=== PATIENT | female | born 1990 | race African-American/Black ===

== ENCOUNTER 2020-07-17 13:27 | Inpatient (IN) | payer MEDICAID ==
[~2020-07-17] VITALS: Ht 160 cm; Wt 156.5 kg
--- NOTE | ~2020-07-17 | OP ---
PATIENT NAME: DEJA BRIGHT MEDICAL RECORD: [id number] :88 LOCATION:[id number] ADMISSION DATE:08/03/20 SURGEON: MEGA NUNES MD DATE OF OPERATION: 08/03/2020 PREOPERATIVE DIAGNOSES: 1. Term intrauterine . 2. History of previous section times 2. 3. Labor. POSTOPERATIVE DIAGNOSES: 1. Term intrauterine . 2. History of previous section times 2. 3. Labor. PROCEDURE: Repeat low transverse section and bilateral distal salpingectomy as well as lysis of adhesion. SURGEON: Mega Nunes. ANESTHESIA: Attempted spinal followed by general anesthesia. SPECIMENS: Included placenta, cord for gases and bilateral tubal segments. ESTIMATED BLOOD LOSS: 1000 mL. IV FLUID: Per anesthesia records. FINDINGS: 1. Viable infant, Apgars 9 at 1 and 9 at 5. 2. Extensive adhesive disease involving the anterior surface of the uterus and rectus fascia. 3. Normal adnexa bilaterally. PROCEDURE IN DETAIL: The patient was taken to the operating room where regional anesthesia was attempted; however, was unable to be achieved. At this point, the patient was prepped and draped, and the patient was induced for general anesthesia. A repeat Pfannenstiel skin incision was made, extended downward to the underlying subcutaneous fat to the level of the fascia. The fascia was then excised in the midline and excised bilaterally using the Diehl scissors. The superior and inferior aspect of the fascial incision was then grasped with Sylwia clamps times 2, tented upward, and sharply dissected from the underlying rectus muscle using the Bovie cautery and the Diehl scissors. Rectus muscles were bluntly in the midline and the peritoneum entered sharply at the superior aspect of the incision. Peritoneal incision was extended bilaterally and inferiorly using the Metzenbaum scissors. Bladder blade was placed into the pelvis. The bladder flap was created by excising the anterior leaf of the broad ligament across the lower uterine segment following lysis of significant adhesive disease on the anterior surface of the uterus. A low transverse incision was made and extended superiorly and inferiorly using the Pelosi method. At this point, the vertex was delivered atraumatically followed by the body. The infant was bulb suctioned upon delivery and was found to be a vigorous. The infant was handed to the awaiting nursery team. At this point, cord was obtained for gases. The cord was clamped times 2 and cut and the placenta was then removed manually and intact. The uterus was exteriorized, OPERATIVE REPORT [id number] DEJA BRIGHT cleared of all clots and debris and vigorously massaged until good uterine tone was noted. The uterine incision was repaired with 0 Vicryl in a running locked fashion times 2 with good hemostasis noted. Attention was then turned to the bilateral fallopian tubes, at which point a defect was made using the Bovie cautery in the bilateral broad ligaments. Curved Flavia clamps were then placed across the mesosalpinx and the midportion of the fallopian tubes bilaterally and the distal proximal half of the fallopian tube was then removed using the Metzenbaum scissors. The 4 pedicles were first free tied with 2-0 Vicryl suture and then suture ligated. All 4 pedicles were found to be hemostatic following distal salpingectomy. Posterior cul-de-sac was then thoroughly irrigated and the uterus was replaced in the pelvis. The anterior cul-de-sac was thoroughly irrigated. Counts were correct times 2 for needles, sponges, and instruments. The fascia was then repaired with 0 looped PDS and the skin repaired with kati. The patient tolerated the procedure well and was transported to postanesthesia recovery stable without incident. TRANSINT:[id number] Voice Confirmation ID: [id number] DOCUMENT ID: [id number] MEGA NUNES MD CC: [id number] DICTATION DATE: 08/18/20 1355 ACT TUTOR: 08/18/20 1441 DIS IN 08/05/20 [place] [id number] [place] [id number]
[2020-08-03] VITALS (9 sets, daily range): BP systolic 127–155; BP diastolic 67–99; Ht 160 cm; Wt 156.5 kg
[2020-08-03 06:27] LABS: HEMATOCRIT 34.1 % (36.0-48.0); HEMOGLOBIN 10.6 g/dL (12-16); MCH 23.6 pg (26.0-34.0); MCHC 31.1 g/dL (31.0-37.0); MCV 75.9 fL (80.0-100.0); MEAN PLATELET VOLUME 9.6 fL (7.4-10.4); RBC 4.49 10x6/uL (4.00-5.40); RDW 17.1 % (11.5-14.5); WBC 7.2 10x3/uL (4.8-10.8)
[2020-08-03 06:30] LABS: BILIRUBIN NEGATIVE (NEGATIVE); KETONE NEGATIVE (NEGATIVE); NITRITE NEGATIVE (NEGATIVE); UROBILINOGEN NORMAL mg/dL (< 2)
[2020-08-03 06:33] LABS: BACTERIA FEW HPF (NONE SEEN); SQUAMOUS EPITHELIAL 0-5 HPF (0-4); WHITE CELLS - URINE 2 HPF (0-4)
[2020-08-03 06:39] LABS: UDS - AMPHET NEGATIVE QUAL (NEGATIVE); UDS - BARB NEGATIVE QUAL (NEGATIVE); UDS - BENZO NEGATIVE QUAL (NEGATIVE); UDS - COCAINE NEGATIVE QUAL (NEGATIVE); UDS - OPIATE NEGATIVE QUAL (NEGATIVE); UDS - PCP NEGATIVE QUAL (NEGATIVE); UDS - THC NEGATIVE QUAL (NEGATIVE)
--- NOTE | 2020-08-03 10:18 | NUR ---
PT RECEIVED FROM RECOVERY. VSS, SEE POST OP FLOWSHEET. PT DROWSY, EASILY AROUSED TO VERBAL STIMULATION. PT C/O ICHING. FF,U2 SMALL AMOUNT RUBRA LOCHIA NOTED ON PERIPAD. ICE PACK PROVIDED TO LOWER TRANSVERSE INCISION. BANDAGE C/D/I. PANDYA DRAING TO BEDSIDE DRAINAGE, 45 MLS YELLOW URINE IN BEDSIDE DRAINAGE. HEART SOUNDS REGULAR R,R S1,S2 PRESENT. LUNGS CLEAR IN ALL LOBES BILATERALLY. OXYGEN ADMINSTERED AT 2 L PER NC. PIV 18G IN RT HAND INFUSING LR WITH PITOCIN AT 125 MLS/HR. CALL LIGHT WITHIN REACH, [id number]. WILL CONTINUE TO MONITOR.
--- NOTE | 2020-08-03 10:30 | NUR ---
DR SANTILLAN PAGED, CALL BACK RECEIVED. REQUEST TO GIVE PT FAITHYL FOR ICHING. ORDERS RECEIVED. SEE EMAR.
--- NOTE | 2020-08-03 10:53 | NUR ---
BENEDRYL 25 MG ADMINISTERED IV FOR ITCHING. PT DENIES NEEDS AT THIS TIME. WILL CONTINUE TO MONITOR.
--- NOTE | 2020-08-03 11:10 | NUR ---
DR SANTILLAN PAGED
--- NOTE | 2020-08-03 11:33 | NUR ---
DR TYRELL PITTMAN.
--- NOTE | 2020-08-03 11:40 | NUR ---
DR SANTILLAN PHONES UNIT, REPORT GIVEN ON ELEVATED BP'S IN 140'S/80'S AND HIGHEST OF 157/85. ORDER RECEIVED TO CONTINUE TO MONITOR AND NOTIFY IF ANY HIGHER BP'S OBTAINED.
--- NOTE | 2020-08-03 12:30 | NUR ---
FF,MIDLINE U2, SMALL AMOUNT RUBRA LOCHIA NOTED. PILLOW AND ICE WATER PROVIDED. PT DENIES NEEDS AT THIS TIME.
--- NOTE | 2020-08-03 13:30 | NUR ---
FF,MIDLINE U2, SMALL AMOUNT RUBRA LOCHIA NOTED. PERIPADS CHANGED. PT POSITIONED TO RIGHT SIDE. PT DENIES NEEDS AT THIS TIME.
--- NOTE | 2020-08-03 13:50 | NUR ---
DR SANTILLAN PAGED, IMMEDIATE CALL BACK. REPORT GIVEN OF PT VS AFTER FLUID BOLUS.
[2020-08-03 13:58] LABS: BASOPHILS 0.1 % (0-2); EOSINOPHILS 0 % (0-7); HEMATOCRIT 31.3 % (36.0-48.0); HEMOGLOBIN 9.6 g/dL (12-16); IMMATURE GRANULOCYTES 0.2 % (0-5); LYMPHOCYTE ABS# 1.34 10x3/uL (1.18-3.74); LYMPHOCYTES 8.8 % (15-50); MCH 23.5 pg (26.0-34.0); MCHC 30.7 g/dL (31.0-37.0); MCV 76.7 fL (80.0-100.0); MEAN PLATELET VOLUME 9.1 fL (7.4-10.4); NEUTROPHIL ABS# 13.24 10x3/uL (1.56-6.13); NEUTROPHILS 86.9 % (40-80); PLATELET COUNT 360 10x3/uL (130-400); RBC 4.08 10x6/uL (4.00-5.40); RDW 17.3 % (11.5-14.5)
[2020-08-03 13:59] LABS: WBC 15.2 10x3/uL (4.8-10.8)
--- NOTE | 2020-08-03 14:30 | NUR ---
PT FF,MIDLINE,U2. SMALL TO MODERATE AMOUNT RUBRA LOCHIA NOTED. PERIPADS CHANGED. PT C/O ITCHING, WILL CONTINUE TO MONITOR.
--- NOTE | 2020-08-03 14:50 | NUR ---
DR SANTILLAN PAGED, IMMEDIATE CALL BACK. REPORT GIVEN OF PT VS. ORDERS RECEIVED TO GIVE FLUID BOLUS OF NS 500 MLS AND TORADOL. WILL CONTINUE TO MONITOR.
--- NOTE | 2020-08-03 15:17 | NUR ---
NS 500 ML BOLUS INFUSING AT 999 MLS/HR. PANDYA EMPTIED 300 MLS STRAW COLORED URINE. PT DENIES NEEDS AT THIS TIME.
--- NOTE | 2020-08-03 15:40 | NUR ---
FF,MIDLINE,U2. MODERATE AMOUNT OF BLEEDING ON PERIPADS. HALF DOLLAR SIZED CLOT ON PAD. PERICARE DONE, PERIPADS CHANGED. PT DENIES NEEDS AT THIS TIME.
--- NOTE | 2020-08-03 18:51 | NUR ---
FF,MIDLINE, U2 MODERATE LOCHIA WITH HALF DOLLAR SIZED CLOT IN PERIPADS. PERIPADS CHANGED,KIMBERLEY CHANGED. TOTAL BLOOD LOSS SINCE PACU WEIGHED AND NOTED TO BE 493 MLS. CALLED, REPORT GIVEN OF BLOOD LOSS, ORDERS RECEIVED TO GIVE TXA AND REPEAT IN ONE HOUR.
--- NOTE | 2020-08-03 19:00 | NUR ---
REPORT TO PM SHIFT
--- NOTE | 2020-08-03 19:15 | NUR ---
RN TO BEDSIDE FOR SHIFT ASSESSMENT. REC'D PT AA&O X 4 SITTING IN HIGH ROLON'S. PAIN ASSESSED. PT RATES PAIN 4/10. STATES "IT'S OK." ORTHOTICS PROSTHETICS ASSISTANT BUTTON AT PT'S SIDE. RESP EVEN AND UNLABORED. LUNGS CL/EQUAL. HR REGULAR. ABD SOFT, FUNDUS FIRM, U/1, MIDLINE. LOW TRANSVERSE INCISION W/ABD DRESSING. FRESH BLOOD NOTED ON BANDAGE THAT APPEARS TO BE FROM VAG BLEEDING, NOT FROM INCISION. PANDYA CATH IN PLACE DRAINING VIA GRAVITY AT BEDSIDE. APPROX 400ML NOTED AND DUMPED. SCD WRAPS ON BILATERALLY. CONNECTED TO PUMP. PUMP IS ON AND FUNCTIONING. EDEMA NOTED TO FEET/ANKLES OF 1+. NO CLONUS. PIV TO RT HAND W/18GUAGE. CURRENT BAG OF PITOCIN INFUSING AT 125ML/HR. TXA TEACHING PROVIDED. PT HAS QUESTIONS. ANSWERED PER THIS RN. FRESH ICE CHIPS AND JULIETH CRACKERS SERVED PER PT'S REQUEST. CURRENT PERIPAD W/ SMALL LOCHIA REMOVED. NO BLEEDING BENEATH PT NOTED. CLEAN PERIPAD PLACED. BED IN LOW POSITION. SIDE RAILS UP X 2. CALL LIGHT AND ORTHOTICS PROSTHETICS ASSISTANT BUTTON AT PT'S SIDE.
--- NOTE | 2020-08-03 19:46 | NUR ---
TXA UP TO INFUSE IVPB VIA PUMP OVER 30MINS. CURRENT PERIPAD W/SMALL LOCHIA NOTED CHANGED. PT DENIES NEEDS AT THIS TIME.
--- NOTE | 2020-08-03 20:15 | NUR ---
RN TO BEDSIDE TO PROVIDE I.S. AND TEACHING. PT PERFORMS I.S. W/GOOD EFFORT. ABLE TO PULL 1900. COUGHS W/GOOD EFFORT AND REPORTS FEELING MUCUS CLEARING. IMMEDIATELY FOLLOWING, PT REPORTS FEELING A LARGE BLOOD CLOT COME OUT. UPON INSPECTION, A SMALL APPLE SIZED CLOT NOTED AND WEIGHED. APPROX 50ML. NO ACTIVE FLOW NOTED. FUNDAL MASSAGE DONE. FUNDUS FIRM,U/2, NO FURTHER CLOTS EXPRESSED. PERICARE DONE AND FRESH PAD AND CHUX PLACED. ADDITIONAL PILLOW PROVIDED. 1ST DOSE OF TXA NOTED TO BE NEAR COMPLETE. WILL PLAN FOR 2ND DOSE ADMIN ORDERED. PT DENIES FURTHER NEEDS AT THIS TIME.
--- NOTE | 2020-08-03 20:59 | NUR ---
2nd dose of TXA up to infuse ivpb via pump per order. small rubra lochia noted to peripad. pad not changed at this time. pain assessed. pt drowzy, reports recently pushed plodder operator button. rates pain 07/02. approx 190ml urine noted in urometer and dumped.
--- NOTE | 2020-08-03 21:15 | NUR ---
RN TO BEDSIDE. PT PERFORMS I.S. X 3 W/GOOD EFFORT. ABLE TO PULL 2000. MINIMAL COUGH NOTED. PT DENIES HAVING A GUSH OR FEELING A BLOOD CLOT THIS TIME. FUNDUS FIRM,U/2. MIDLINE. NO CLOTS EXPRESSED W/MASSAGE. PERICARE DONE. CHUX AND PAD CHANGED.FRESH WATER SERVED. NO FURTHER NEEDS AT THIS TIME.
--- NOTE | 2020-08-03 22:00 | NUR ---
RN TO BEDSIDE. PT SITTING UP IN BED AWAKE W/BABY UP IN ARMS. PT REPORTS SHE WAS ABLE TO DOZE OFF, BUT HER ABD PAIN WOKE HER UP. SO SHE PUSHED PER SAFETY ADMINISTRATOR BUTTON. NO URINE OUTPUT NOTD IN UROMETER. PT REPOSITINED IN BED AND APPROX 35ML URINE DRAINED INTO UROMETER AND DUMPED. TEACHING PROVIDED TO CONTINUE DRINK PO FLUIDS. FUNDAL MASSAGE PERFORMED. FUNDUS FIRM,U/2, NO BLOOD CLOTS EXPRESSED W/MASSAGE. CURRENT PAD W/MODERATE LOCHIA NOTED. PERICARE DONE AND FRESH PAD PLACED. PT PERFORMS I.S. W/GOOD EFFORT X 3. SCD WRAPS REMAIN IN PLACE BILATERALLY. REMAIN CONNECTED TO PUMP. PUMP REMAINS ON. PT DENIES NEEDS. SAFETY ADMINISTRATOR BUTTON AND CALL LIGHT AT PT'S SIDE.
--- NOTE | 2020-08-03 23:00 | NUR ---
RN TO BEDSIDE FOR VITAL SIGNS, I&O AND BLEEDING ASSESSMENT. SEE FLOWSHEET. QBL FOR [id number] = 240ML. PERICARE DONE AND CLEAN PAD PLACED.
--- NOTE | 2020-08-03 23:20 | NUR ---
DR DIAS CALLED TO GIVE REPORT OF PT'S CURRENT VITALS, AND URINE OUTPUT. ORDERS REC'D TO GIVE 1 LITER BOLUS OF NS NOW AND THEN CONTINUE WITH PITOCIN INFUSION PER PROTOCOL.
--- NOTE | 2020-08-03 23:35 | NUR ---
TOOK REPORT FROM PRABHU BAINS. I AM TAKING OVER CARE OF THIS PT. HER NS BOLUS IS IN PROGRESS FROM STARTINB 2330. STARTING URINE OUTPUT IN PANDYA BAG IS 10 ML. WILL BE FOLLOWING CLOSELY.
--- NOTE | 2020-08-04 00:32 | NUR ---
PT IS ITCHING SEVERELY. SHE LOOKS MISERABLE.SHE STATES THIS ITCHING STARTED IN HER THIRD TRIMESTER. SHE RECEIVED 50 MG OF BENADRYL IV PER ORDER.
--- NOTE | 2020-08-04 00:50 | NUR ---
GLASS BREAKER PUMP WAS REFILLED WITH ANOTHER SYRINGE OF DILAUDID.
--- NOTE | 2020-08-04 01:00 | NUR ---
FLUID BOLUS IS COMPLETED. NS/PITOCIN 20 UNITS WAS HUNG RUNNING AT 125 ML/ HR.
--- NOTE | 2020-08-04 02:00 | NUR ---
IN PT ROOM TO CHECK ON URINE OUTPUT. SHE HAS 125ML OF URINE IN THE PANDYA BAG. I ENCOURAGED HER TO CONTINUE DRINKING ALL SHE COULD. HER MUG WAS REFILLED WITH FRESH ICE WATER. HER URINE IS VERY CONCENTRATED. WHEN I FIRST WALKED INTO THE ROOM PT WAS DOZING. SHE STATES THAT SHE IS NOT ITCHING ANY MORE. PT HAS NO NEW C/O OR NEEDS.
[2020-08-04 03:30] VITALS: BP 136/73
--- NOTE | 2020-08-04 04:00 | NUR ---
CHECKED PT PAD. THERE WAS ON STRINGY CLOT THAT WAS VERY SMALL. BLEEDING IS STILL MOD. FUNDUS FIRM. CLEANED PT JUSTIN AREA WITH WARM WATER AND SHE FEELS BETTER. NEW PAD PLACED. PT IS HAVING MORE URINE OUTPUT.
--- NOTE | 2020-08-04 04:46 | NUR ---
BABY IN CRIB AND MOM IS SLEEPING.
--- NOTE | 2020-08-04 05:00 | NUR ---
PT NOW AWAKE. PAD CHANGED. A LITTLE STRINGY CLOTT ON PAD. BLEEDING IS MODERATE. NO NEW C/O AT THIS TIME.
--- NOTE | 2020-08-04 06:00 | NUR ---
PT IS STARTING TO ITCH BADLY. SHE GETS AGITATED WHEN THE ITCHING STARTS TO GET BAD. WILL GIVE MORE BENEDRYL WHEN ITS TIME.
[2020-08-04 06:11] LABS: RAPID PLASMA REAGIN Non Reactive (Non Reactive)
--- NOTE | 2020-08-04 06:45 | NUR ---
PT PAD CHANGED. THIS PAD WAS FAIRLY WELL SATURATED AND MORE BLEEDING THAN THE LAST TWO PAD.
[2020-08-04 07:50] VITALS: BP 139/85
--- NOTE | 2020-08-04 07:50 | NUR ---
RECEIVED PT SITTING UP IN BED. C/O BURNING AND ITCHING OF "7" ON 0-10 PAIN SCALE. VSS. HRRR WITHOUT AUDIBLE MURMUR. BBS CLEAR. BS X 4. ABDOMEN SOFT/NON-DISTENDED. FUNDUS FIRM AT U/U. RUBRA LOCHIA SMALL AMT. NO CLOTS NOTED ON PERIPAD OR A RESULT OF FUNDAL MASSAGE. ABDOMINAL DRESSING DRY WITHOUT DRAINAGE. NEG HOMANS' SIGN. PPP. 1+/1+ PITTING EDEMA NOTED TO FEET. PERIPAD AND CHUX CHANGED. PIV SITE CLEAR TO RIGHT HAND. NS WITH PITOCIN INFUSING AT 125 ML/HR. DILAUDID DISPENSING OPTICIAN APPRENTICE INFUSING ORDERED. PT C/O ABDOMINAL PAIN AND PAIN TO VAGINAL AREA OF "7" ON 0-10 PAIN SCALE. PT ALSO C/O ITCHING. SCDS ON BLE. PUMP ON. PANDYA TO GRAVITY DRAINING CONCENTRATED YELLOW URINE. 100 ML EMPTIED FROM BAG. SR UP X 2. CALL LIGHT IN REACH.
[2020-08-04 09:06] LABS: BASOPHILS 0.1 % (0-2); EOSINOPHILS 0.2 % (0-7); HEMATOCRIT 25.2 % (36.0-48.0); IMMATURE GRANULOCYTES 0.2 % (0-5); LYMPHOCYTE ABS# 2.06 10x3/uL (1.18-3.74); LYMPHOCYTES 23.2 % (15-50); MCH 23.5 pg (26.0-34.0); MCHC 30.2 g/dL (31.0-37.0); MCV 77.8 fL (80.0-100.0); MEAN PLATELET VOLUME 9.4 fL (7.4-10.4); MONOCYTES 5.9 % (2-11); NEUTROPHIL ABS# 6.24 10x3/uL (1.56-6.13); NEUTROPHILS 70.4 % (40-80); PLATELET COUNT 331 10x3/uL (130-400); RDW 17.2 % (11.5-14.5)
[2020-08-04 09:08] LABS: HEMOGLOBIN 7.6 g/dL (12-16); RBC 3.24 10x6/uL (4.00-5.40); WBC 8.9 10x3/uL (4.8-10.8)
--- NOTE | 2020-08-04 09:10 | NUR ---
DR SANTILLAN NOTIFIED OF LAB RESULTS. ORDERS RECEIVED.
--- NOTE | 2020-08-04 09:32 | NUR ---
PT C/O ABDOMINAL CRAMPING OF "7" ON 0-10 PAIN SCALE. NORCO 10/325 AND MOTRIN 600 MG GIVEN PO ORDERED. PANDYA DC'D WITH 150 ML OF DARK, YELLOW URINE NOTED IN BAG.
--- NOTE | 2020-08-04 10:00 | NUR ---
PT AMBULATORY PER SELF, STEADY GAIT, TO BR. UNABLE TO VOID AT THIS TIME. SPONGE BATH PER PT REQUEST. BED LINENS CHANGED.
--- NOTE | 2020-08-04 10:42 | NUR ---
PT BACK TO BED. SHILPA ACTIVITY WELL. STATES C/O FEELING TIRED. NS ON Y-TUBING INFUSING AT 125 ML/HR. SITE CLEAR TO RIGHT HAND.
[2020-08-04 10:57] VITALS: BP 123/75
--- NOTE | 2020-08-04 10:59 | NUR ---
FIRST UNIT PACKED RBC'S UP/VERIFIED PER THIS NURSE AND Katherine RESENDIZ RN. VSS. PT INSTRUCTED ON SIDE EFFECTS. VERBALIZES UNDERSTANDING. PIV SITE CLEAR.
--- NOTE | 2020-08-04 11:15 | NUR ---
PT TOLERATING TRANSFUSION WELL. RATE INCREASED FROM 75 ML/HR TO 125 ML/HR. SITE CLEAR TO RIGHT HAND.
--- NOTE | 2020-08-04 11:30 | NUR ---
VSS. PT TOLERATING TRANSFUSION WELL. RATE INCREASED TO 250 ML/HR. SITE CLEAR.
--- NOTE | 2020-08-04 13:00 | NUR ---
PT SITTING UP IN BED. PACKED RBC'S COMPLETED. PIV CONVERTED TO SL. FLUSHES EASILY WITH 10 ML NS. SITE CLEAR. PT SHILPA WELL. VSS.
--- NOTE | 2020-08-04 13:04 | NUR ---
PT UP TO BR. VOIDS 400 ML OF BLOOD-TINGED URINE. PERICARE DONE PER PT. PANTIES AND PADS CHANGED. SEVERAL SMALL DIME-SIZED CLOTS NOTED ON TISSUE. PT AMB BACK TO BED. PT C/O ABDOMINAL PRESSURE. REQUESTS AND RECEIVES NORCO 10/325 AND MYLICON 80 MG CHEW TAB. PT ALSO C/O ITCHING. BENADRYL 50 MG GIVEN PO ORDERED.
--- NOTE | 2020-08-04 14:30 | NUR ---
PT AMBULATORY IN HALLS. SHILPA ACTIVITY WELL.
--- NOTE | 2020-08-04 15:20 | NUR ---
PT TRANSFERED VIA AMBULATORY TO ROOM 1257. PT ORIENTED TO ROOM, BED, AND CALL LIGHT.
--- NOTE | 2020-08-04 16:10 | NUR ---
R HAND PIV WRAPPED. TOWELS PROVIDED, UP TO SHOWER. REPORTS THAT SIGNIFICANT OTHER WILL ASSIST. INSTRUCTED ON BR CALL LIGHT USE, VERBALIZES UNDERSTANDING. 400 MLS CLEAR LIGHT YELLOW URINE EMPTIED FROM PANDYA. DENIES NEEDS.
--- NOTE | 2020-08-04 16:24 | NUR ---
PT TRANSFERED VIA WHEELCHAIR PER TRANSPORT STAFF TO ROOM 2236.
--- NOTE | 2020-08-04 16:25 | NUR ---
C/O OF ABD AND INCISIONAL DISCOMFORT, 10/30. MEDICATED PER EMAR. LIST OF MEDS PLACED ON PT BOARD PER REQUEST WITH NEXT AVAILABLE TIME FOR PRN MEDS. SITTING IN HIGH FOWLERS POSITION CARING FOR . ICE WATER PROVIDED. BED IN LOW POSITION WITH SRUP X2. CALL LIGHT AND PHONE WITIN REACH. SIGNIFICANT OTHER AT BEDSIDE, SUPPORTIVE AND ATTENTIVE TO PT AND INFANT NEEDS.
--- NOTE | 2020-08-04 17:19 | NUR ---
PT SITTING UP IN BED. CONSUMING DINNER. STATES PASSING GAS. C/O PAIN TO LOWER ABDOMEN OF "10" ON 0-10 PAIN SCALE. NORCO 10/325 AND MYLICON 80 MG CHEW TAB GIVEN PO ORDERED. PT INSTRUCTED ON MEDS. VERBALIZES UNDERSTANDING. VSS. PT DENIES PASSING CLOTS OR SOAKING PAD IN AN HOUR. STATES "MY BLEEDING HAS GOTTEN REALLY LIGHT".
[2020-08-04 17:20] VITALS: BP 128/68
[2020-08-04 18:09] VITALS: BP 127/71
--- NOTE | 2020-08-04 18:10 | NUR ---
PT SITTING UP IN BED. C/O GAS PAIN/PRESSURE. VSS. PT STATES PASSING VERY LITTLE GAS BELOW. STATES HAS BEEN DRINKING MORE SODA/SPRITE. PT ENCOURAGED TO AMBULATE IN HALLS.
--- NOTE | 2020-08-04 18:50 | NUR ---
REPORT GIVEN TO ON-COMING SHIFT.
--- NOTE | 2020-08-04 19:48 | NUR ---
PT. REQUEST BENADRYL AT THIS TIME. PT. REPORTS "ASHLEY BEEN ITCHING NON STOP". INSTRUCTED PT. THAT I WILL BRING ONE RIGHT BACK.
--- NOTE | 2020-08-04 19:55 | NUR ---
BENADRYL 50 MG CAPSULE ADMINISTERED ORALLY PER MD ORDERS AND PT. REPORT OF "ITCHING". DISCUSSED WITH PT. THAT ITCHING CAN BE A SIDE EFFECT OF PAIN MEDICATION OR IT COULD BE THAT THE LINENS ARE WASHED IN SOMETHING SHE IS SENSATIVE TO. INSTRUCTED MOM THAT THERE IS NO VISIBLE RASH OR ANYTHING SO IT MOST LIKELY IS THE MEDICATION. PT. VERBALIZES UNDERSTANDING.
--- NOTE | 2020-08-04 20:22 | NUR ---
PADS, PANTIES AND CHUX PROVIDED AT PT.'S REQUEST. PT. DENIES FURTHER NEEDS AT THIS TIME.
--- NOTE | 2020-08-04 21:25 | NUR ---
FEMALE PRESENT IN ROOM. INFANT AT BEDSIDE, SWADDLED AND SUPINE IN CRIB. SHIFT ASSESSMENT COMPLETED. UTERUS WAS FOUND TO BE U1 AND MIDLINE. SCANT BLEEDING NOTED ON PAD DURING ASSESSEMENT. TAHIRA INTACT. PT EDUCATED ON THE IMPORTANCE OF CALLING FOR HELP IF ASSISTANCE IS NEEDED. PT VERBALIZES UNDERSTANDING AT THIS TIME. NO OTHER NEEDS OR CONCERNS VOICED. S/O PRESENT IN ROOM AT THIS TIME AND ALSO DENIES NEEDS OR CONCERNS.
--- NOTE | 2020-08-04 23:03 | NUR ---
PT. BURNING SUPERVISOR LIGHT. PT. SITTING UP FEEDING INFANT A BOTTLE AT THIS TIME. PT. INQUIRES TO WHY INFANT APPEARS TO BE "SO JITTERY". DISCUSSED WITH PT. THAT SOMETIMES THIS WILL HAPPEN IF THEY WERE WITHDRAWING FROM NICOTINE OR EVEN CAFFIENE BUT SINCE SHE HAD DONE NEITHER DURING HER THAT IT IS MOST LIKELY JUST HIS STARTLE REFLEX AND THAT THIS IS A GOOD THING IT SHOWS THAT EVERYTHING IS FIRING CORRECTLY IN HIS BRAIN. PT. VERBALIZES UNDERSTANDING AND DENIES FURTHER QUESTIONS OR CONCERNS AT THIS TIME. WILL CONT. TO MONITOR.
--- NOTE | 2020-08-04 23:17 | NUR ---
PT. COMPANY LABORER LIGHT AND REQUEST NURSE TO BEDSIDE. UPON ENTERING ROOM PT. IS SITTING UP ON THE SIDE OF THE BED AND REPORTS "SHOULD I DO SOME MORE WALKING BECAUSE THIS SHARP PAIN IN MY BELLY AND PRESSURE IN MY BOTTOM IS KILLING ME". INSTRUCTED PT. THAT GAS PAIN CAN BE VERY PAINFUL. INQUIRED IF PT. IS PASSING GAS AT THIS TIME AND PT. DENIES. INSTRUCTED PT. THAT EATING THE SALAD THAT SHE WAS EATING EARLIER HAS PROBABLY JUST CAUSED SOME MORE DISCOMFORT BECAUSE LETTUCE IS A GAS CAUSING FOOD. INSTRUCTED PT. TO ATTEMPT TO GO SIT ON TOILET FOR A FEW MINUTES AND TRY TO RELAX MUCH POSSIBLE AND THIS MAY HELP HER PASS SOME OF THAT GAS AND MAKE HER MORE COMFORTABLE. INSTRUCTED PT. TO CALL ME IF SHE ISN'T ABLE TO GET ANY RELIEF AND WE CAN WALK IN THE HALLWAYS A FEW TIMES. PT. VERBALIZES UNDERSTANDING AND DENIES FURTHER NEEDS.
--- NOTE | 2020-08-04 23:40 | NUR ---
PT. REPORTS "IS THERE ANYWAY THIS IV CAN COME OUT NOW, ITS STARTING TO HURT AND I KEEP BUMPING IT". 18 G. SALINE LOCK IN RIGHT HAND DISCONTINUED WITH CATH TIP INTACT. PRESSURE HELD TO SITE FOR 1 MINUTE THEN BANDAID APPLIED. PT. DENIES FURTHER NEEDS AT THIS TIME.
--- NOTE | 2020-08-05 01:20 | NUR ---
PT. REQUEST PAIN MEDICATION AT THIS TIME. PT. COMPLAINS OF ABDOMINAL PAIN AND DENIES PASSING GAS AT THIS TIME.
--- NOTE | 2020-08-05 01:25 | NUR ---
PT. MEDICATED WITH NORCO 10/325 MG 1 TAB ORALLY PER MD ORDERS AND HER COMPLAINT OF PAIN. INSTRUCTED PT. REGARDING TAKING MYLICON CHEWABLE ALSO AND ADMINISTER ONE ORDERED. PT. INSTRUCTED TO GET UP TO BATHROOM AND JUST SIT ON TOILET AND TRY TO RELAX MUCH POSSIBLE AND SEE IF THAT DOESN'T HELP HER PASS SOME GAS. PT. VERBALIZES UNDERSTANDING AND DENIES FURTHER QUESTIONS OR CONCERNS AT THIS TIME.
[2020-08-05 01:30] VITALS: BP 136/75
--- NOTE | 2020-08-05 02:24 | NUR ---
PT. REPORTS HAVING PASSED SOME GAS AFTER SITTING ON TOILET AND PAIN IS BETTER AT THIS TIME. PT. RATES AT "3-4" ON 0-10 SCALE. WILL CONT. TO MONITOR.
--- NOTE | 2020-08-05 03:40 | NUR ---
PT. ACCESS REGISTRAR LIGHT AND REQUEST NURSE TO ROOM. UPON ENTERING THE ROOM PT. IS IN SEMI FOWLERS POSITION IN BED WITH SEVERAL BLANKETS ON TOP OF HER. PT. REPORTS "I REALLY DON'T FEEL GOOD, YOU KNOW I TOLD YOU I WAS COUGHING UP SOME PHLEGM AND MY THROAT WAS KIND OF SORE, WELL ITS GETTING WORSE". INSTRUCTED PT. REGARDING TRYING TO COUGH UP ANYTHING SHE IS ABLE TO AND SPITTING IT OUT. INQUIRED IF PT. COULD TELL WHAT COLOR IT IS. PT. REPORTS "ITS LIKE A LITTLE BIT OF GREEN". VITALS TAKEN AND STABLE. SEE GRAPH. BREATH SOUNDS CLEAR. RESP. ARE EVEN AND UNLABORED. PT. INSTRUCTED REGARDING CONTINUING TO USE THE INCENTIVE SPIROMETER HOURLY AND TO COUGH AND DEEP BREATH AT LEAST EVERY 2 HOURS. PT. VERBALIZES UNDERSTANDING. INSTRUCTED PT. THAT WARM FLUIDS WILL PROBABLY HELP TO SOOTHE HER THROAT AND LOOSEN UP ANY PHLEGM IN HER CHEST. PT. REQUEST TEA AT THIS TIME.
--- NOTE | 2020-08-05 03:52 | NUR ---
LARGE CUP OF TEA WITH NO ICE PROVIDED. INSTRUCTED PT. TO CONTINUE TO SIP ON THIS AND ALSO PERFORM INCENTIVE SPIROMETER AND C/DB EXERCISES INSTRUCTED. PT. VERBALIZES UNDERSTANDING AND DENIES FURTHER QUESTIONS OR CONCERNS AT THIS TIME.
--- NOTE | 2020-08-05 04:18 | NUR ---
REPORT CALLED TO DR. WINTERS OF PT.'S COMPLAINT OF CHEST PAIN AND COUGHING UP PHLEGM. ORDERS REC.
--- NOTE | 2020-08-05 04:24 | NUR ---
RADIOLOGY NOTIFIED OF NEED FOR CT WITH CONTRAST TO RULE OUT PE.
--- NOTE | 2020-08-05 04:40 | NUR ---
22 G. IV CATH INITIATED IN RIGHT AC ON 3RD ATTEMPT. SALINE LOCKED AT THIS TIME.
--- NOTE | 2020-08-05 04:49 | NUR ---
STEFANY DIRECTOR OF ROOMS AT BEDSIDE AND LISTENS TO PT.'S BREATH SOUNDS. ALL BREATH SOUNDS CLEAR.
[2020-08-05 04:50] VITALS: BP 143/78
[2020-08-05 04:58] VITALS: BP 144/83
--- NOTE | 2020-08-05 05:35 | NUR ---
LABORER CONSTRUCTION OR [facility] [employer] CALLS FLOOR TO ADVISE THAT THEY WILL NOT HAVE THE MEDICATION USED FOR THE VQ SCAN UNTIL AFTER 07 AM SO THE TEST COULD NOT BE PERFORMED UNTIL 0730 AM. WAS ADVISED TO OFFER TO STICK PT. AGAIN FOR IV ACCESS SO THAT WE CAN DO THE CT SCAN WITH CONTRAST.
--- NOTE | 2020-08-05 05:39 | NUR ---
EXPLAINED TO PT. THAT THE MEDICATION FOR THE VQ SCAN CANNOT BE ADMINISTERED UNTIL AROUND 7:30 AM. INSTRUCTED THE PT. THAT WE CAN ATTEMPT ANOTHER IV AND HAVE THE CT INSTEAD NOW OR WE CAN WAIT AND USE THE 22 G. FOR THE VQ SCAN. EXPLAINED TO PT. WHAT THESE TESTS ARE LOOKING FOR AND INQUIRED AGAIN WITH PT. IF SHE IS SURE THAT SHE WOULD LIKE TO WAIT BECAUSE IF SHE WAS TO HAVE A PULMONARY EMBOLISM THAT THE SOONER WE FIND OUT ABOUT IT THE BETTER THE OUTCOME WOULD BE. EXPLAINED TO PT. THAT IF WE WAITED THEN IT COULD POSSIBLY CAUSE PERMANENT DAMAGE AND POSSIBLY . PT. CONTINUES TO STATES "I AM NOT BEING STUCK AGAIN SO I WILL BE FINE, ILL WAIT FOR THE OTHER TEST". NOTIFIED RADIOLOGY OF PT.'S CHOICE.
--- NOTE | 2020-08-05 05:55 | NUR ---
REPORT CALLED TO DR. WINTERS OF [facility] SCAN NOT BEING RUN UNTIL AROUND 0730AM. REPORT GIVEN THAT I EXPLAINED TO THE PT. WHAT THIS TEST IS LOOKING FOR AND THE POSSIBLE CONSEQUENCES OF WAITING UNTIL 0730 AM AND THAT PT. STILL REFUSES TO BE STUCK ANYMORE TIMES FOR THE 20 G. IV THAT IS NEEDED IN ORDER TO OBTAIN THE CT INSTEAD. ORDERS REC. FROM DR. WINTERS TO CALL HER IMMEDIATELY IF THE PT.'S OXYGEN LEVEL WERE TO DROP.
--- NOTE | 2020-08-05 06:00 | NUR ---
PT. PLACED BACK ON VITALS MACHINE. OXYGEN SAT AT 98% ON ROOM AIR. ALL OTHER VITALS WNL.
--- NOTE | 2020-08-05 06:22 | NUR ---
PT. SITTING UP IN BED WITH INFANT LAYING ON A PILLOW. PT. REPORTS "IM FEELING GOOD NOW" WHEN ASKED HOW SHE IS FEELING AT THIS TIME. OXYGEN SAT REMAINS AT 98% ON ROOM AIR. ALL OTHER VITALS WNL. PT. REPORTS "OH, IM DOING GOOD NOW" WHEN ASKED REGARDING PAIN. PT. DENIES ANY FURTHER CHEST PAIN AND CONTINUES TO INQUIRE REGARDING BEING DISCHARGED HOME TODAY. ADVISED PT. THAT THIS WILL BE UP TO DR. WINTERS WHEN SHE MAKES ROUNDS AND THAT I WOULD IMAGINE THAT SHE WILL GET TO BE DISCHARGED LONG EVERYTHING LOOKS GOOD WHEN SHE HAS THIS VQ SCAN AND IF SHE ISN'T FEELING ANYMORE CHEST PAINS. PT. REPORTS "I REALLY THINK ITS JUST A CHEST COLD OR SOMETHING BECAUSE I AM COUGHING UP PHLEGM PRETTY MUCH EVERYTIME I COUGH NOW". BREATH SOUNDS CONTINUE TO BE CLEAR TO AUSCULTATION. WILL CONT. TO MONITOR. PT. DENIES FURTHER NEEDS OR CONCERNS AT THIS TIME. SIGNIFICANT OTHER REMAINS AT BEDSIDE.
--- NOTE | 2020-08-05 07:15 | NUR ---
NUCLEAR MEDICINE STAFF AT [facility]. STATES PT REFUSING TO HAVE VQ SCAN DONE. THIS NURSE TO ROOM. PT STATES "I AM NOT HAVING THAT DONE". STATES "I PROMISE I'M FINE". PT INFORMED OF RISKS OF NOT HAVING TEST DONE AND THAT DR WINTERS WANTS TEST DONE. PT STATES "I WILL TELL HER I'M NOT HAVING IT DONE". DR WINTERS NOTIFIED. REQUESTS TO BE TRANSFERED TO SPEAK WITH PT. PHONE CALL TRANSFERED TO PT ROOM.
--- NOTE | 2020-08-05 07:22 | NUR ---
DR WINTERS CALLS UNIT. STATES PT AGREES TO HAVE TEST DONE. NUCLEAR MEDICINE STAFF ON UNIT AND NOTIFIED.
--- NOTE | 2020-08-05 07:47 | NUR ---
PT TO NUCLEAR MEDICINE VIA WHEELCHAIR PER STAFF.
[2020-08-05 08:15] VITALS: BP 133/81
--- NOTE | 2020-08-05 08:15 | NUR ---
PT BACK TO ROOM VIA WHEELCHAIR PER STAFF. PT TO BED. VSS. HRRR WITHOUT AUDIBLE MURMUR. BBS CLEAR. BS X 4. ABDOMEN SOFT. FUNDUS FIRM AT U/U. RUBRA LOCHIA SMALL AMT. ABDOMINAL INCISION WITH TAHIRA. NO DRAINAGE, SWELLING OR REDNESS NOTED IN INCISION. NEG HOMANS' SIGN. PPP. MOD EDEMA NOTED TO BLE-1+/1+ PITTING. NO CLONUS. PT DENIES HEADACHE, VIS PROBLEMS, EPIG OR RUQ PAIN. SL TO RIGHT AC-22 GAUGE. PT DENIES PAIN. STATES PAIN "0" ON 0-10 PAIN SCALE. DENIES SHORTNESS OF BREATH, DIZZINESS OR WEAKNESS. SR UP X 2. CALL LIGHT IN REACH.
--- NOTE | 2020-08-05 08:20 | NUR ---
PERIPAD TO INCISION. PT INSTRUCTED ON INCISIONAL CARE. STATES HAS OWN BINDER AND WEARS WHEN AMBULATORY IN HALLS. PT DENIES HEAVY BLEEDING-SOAKING PAD IN ONE HOUR OR PASSING CLOTS THE SIZE OF AN EGG OR BIGGER. PT INSTRUCTED TO REPORT ANY HEAVY BLEEDING OR CLOTS TO NURSE. VERBALIZES UNDERSTANDING. PT STATES "I THINK I WAS JUST TIRED". STATES "I FELT BETTER AFTER I SLEPT SOME".
--- NOTE | 2020-08-05 10:08 | NUR ---
PT LYING SUPINE IN BED. WAKES UPON ENTERING ROOM. C/O ABDOMINAL PAIN OF "1" ON 0-10 PAIN SCALE. REQUESTS AND RECEIVES NORCO 10/325, BENADRYL 50 MG, MYLICON 80 MG AND COLACE 100 MG PO. PT INSTRUCTED ON ALL MEDS. VERBALIZES UNDERSTANDING.
--- NOTE | 2020-08-05 11:10 | NUR ---
DR WINTERS VISITS WITH PT. PT AGREES TO LAB DRAW.
--- NOTE | 2020-08-05 11:16 | NUR ---
LAB STAFF TO ROOM TO COLLECT ORDERED CBC.
[2020-08-05 11:28] LABS: BASOPHILS 0.1 % (0-2); EOSINOPHILS 0.3 % (0-7); HEMATOCRIT 27.5 % (36.0-48.0); HEMOGLOBIN 8.6 g/dL (12-16); IMMATURE GRANULOCYTES 0.4 % (0-5); LYMPHOCYTE ABS# 2.03 10x3/uL (1.18-3.74); LYMPHOCYTES 19.4 % (15-50); MCH 24.4 pg (26.0-34.0); MCHC 31.3 g/dL (31.0-37.0); MCV 78.1 fL (80.0-100.0); MONOCYTES 5.6 % (2-11); NEUTROPHIL ABS# 7.77 10x3/uL (1.56-6.13); NEUTROPHILS 74.2 % (40-80); PLATELET COUNT 358 10x3/uL (130-400); RBC 3.52 10x6/uL (4.00-5.40); RDW 17.7 % (11.5-14.5); WBC 10.5 10x3/uL (4.8-10.8)
--- NOTE | 2020-08-05 11:29 | NUR ---
PT CALLS ON LIGHT. THIS NURSE TO ROOM. PT REQUESTS AND RECEIVES BOTTLE FOR . PT STATES "HE ALREADY TOOK THAT BAG DOWN TO THE CAR". PT REQUESTING SL BE DC'D. ENCOURAGED PT TO WAIT ON LAB RESULTS BEFORE SL DC'D.
[2020-08-05] MEDS ORDERED: MOTRIN600 MG PO (11:37)
[2020-08-05] MEDS ORDERED: HYDROCODON-ACE1 EA10 PO (11:37)
--- NOTE | 2020-08-05 11:49 | NUR ---
DR WINTERS AT [facility]. NOTIFIED OF CBC RESULTS. ORDER RECEIVED TO HI HOME; F/U NEXT WEEK FOR STAPLE REMOVAL.
--- NOTE | 2020-08-05 12:00 | NUR ---
DISCHARGE INSTRUCTIONS GIVEN TO PT. PT VERBALIZES UNDERSTANDING OF ALL INSTRUCTIONS. COPIES GIVEN TO PT. PT GIVEN RX FOR NORCO 10/325 AND MOTRIN 600 MG. SL DC'D WITH [facility] INTACT. PRESSURE BANDAGE TO SITE. PT SHILPA WELL. PREPARES FOR DISCHARGE.
--- NOTE | 2020-08-05 12:23 | NUR ---
PT READY FOR DISCHARGE. DISCHARGED IN STABLE CONDITION WITH VIA WHEELCHAIR PER Chacho HERNANDEZ RN TO PRIVATE VEHICLE.
== END 2020-08-05 12:23 | disposition home or self-care (01) | DRG 785 ==
LOC: D.WS 08-03 05:38 → D.LD 08-03 05:38 → D.SDCHOLD 08-03 07:30 → D.WS 08-03 10:11 → D.LD 08-04 15:40
PROVIDERS: Student in an Organized Health Care Education/Training Program; ADMIT Obstetrics & Gynecology; ATTEND Obstetrics & Gynecology
PROC: 10D00Z1 Extraction of Products of Conception, Low, Open Approach (ICD-10-PCS; principal; 2020-08-03 07:30)
PROC: 0UB70ZZ Excision of Bilateral Fallopian Tubes, Open Approach (ICD-10-PCS; 2020-08-03 07:30)
DX: O34.219 Maternal care for unspecified type scar from previous cesarean delivery (principal); Z3A.39 39 weeks gestation of pregnancy; Z37.0 Single live birth; O99.214 Obesity complicating childbirth; E66.01 Morbid (severe) obesity due to excess calories; Z30.2 Encounter for sterilization